=== PATIENT | female | born 1965 | race Caucasian/White ===

== ENCOUNTER 2024-10-31 03:54 | Emergency (ER) | payer OTHER ==
[2024-10-31 04:05] VITALS: TEMP 98.5
--- NOTE | 2024-10-31 04:12 | ERPHSYRPT ---
- History of Present Illness Time Seen by Provider: 10/31/24 03:56 Source: patient, family Physician History: This is a 59-year-old female [id number] who has had 3 to 4 days of right middle finger nail area pain that she is tried stabbing with a needle, scissors, and biting at an soaking in warm water with Epsom salt. She noticed after soaking that white discharge came out and this somewhat decreased pain, but the fingertip was red and she tried using antibiotic ointment and a glove to keep antibiotic ointment on the site which has not resolved it. Patient's last tetanus shot 10 years or more ago. Allergies/Adverse Reactions: No Known Drug Allergies Allergy (Unverified 10/31/24 04:05) Home Medications: Aspirin 81 gm Chew [Baby Aspirin 81 mg Chew] 1 tab PO DAILY 10/31/24 [History] Atorvastatin Calcium 10 mg PO DAILY 10/31/24 [History] Lisinopril 10 mg [Zestril 10 MG] 10 mg PO DAILY 10/31/24 [History] Metformin HCl [Metformin ER Gastric] 1,000 mg PO BID 10/31/24 [History] - Review of Systems All Other Systems: Reviewed and Negative (As per HPI otherwise negative) - Nursing Vital Signs Nursing Vital Signs: Initial Vital Signs Temperature 98.5 F 10/31/24 04:04 Pulse Rate 120 H 10/31/24 04:04 Respiratory Rate 17 10/31/24 04:04 Blood Pressure 175/98 10/31/24 04:04 O2 Sat by Pulse Oximetry 97 10/31/24 04:04 Pain Scale Pain Intensity 4 - Physical Exam Comments: 10/31/24 04:16 General: Well-nourished well-developed. No apparent distress. HEENT: Normocephalic atraumatic no obvious facial or neck deformity or injury. Neck: Supple. No deformity or mass noted. CV: RRR NL Perfusion. No edema Resp: No Respiratory distress or adventitious breath sounds Abd: ND SNT MSK: No deformity or TTP. Right finger #3 distal phalanx with paronychia on lateral aspect of fingernail that appears decompressed. No active drainage. There is no pulp space tenderness or evidence of felon. Patient states that she had noticed white discharge did come out after soaking and she has been squeezing it. Neuro: Alert and [place] x4. No gross focal neurologic changes Psych: Patient very anxious. Doing windmills rolling her arms. She has to be calmed but is directable. No SI, HI or grave disability 10/31/24 04:19 Ordered Tests: Medication Summary Discontinued Medications Generic Name Dose Route Start Last Admin Trade Name Jennifer PRN Reason Stop Dose Admin Amoxicillin/Clavulanate Potassium 875 mg 10/31/24 04:12 10/31/24 04:27 Amox Tr/Potassium Clavulanate 875 Mg Tablet PO 10/31/24 04:13 875 mg STAT ONE Administration Diphtheria/Tetanus/Acell Pertussis 0.5 ml 10/31/24 04:12 10/31/24 04:27 Tdap --Diph,Pertuss(Acell),Tet Vac/Pf 0.5 Ml Vial IM 10/31/24 04:13 0.5 ml .ONCE ONE Administration Ibuprofen 600 mg 10/31/24 04:14 10/31/24 04:27 Ibuprofen 600 Mg Tablet PO 10/31/24 04:15 600 mg STAT ONE Administration - Progress Progress Note: 10/31/24 04:17 The patient heart rate, but she is very hyperactive and personality. She is doing windmills with her arms in the waiting area and has very rapid pressured speech even when talking to her. She is redirectable but has to be settled to be able to talk to her. Patient is informed that she needs to stop manipulating, using needles, scissors, biting or doing any other manipulation of wound. The wound does appear to already be decompressed and there does not appear to be a distinct pus area to drain. There is no evidence of a felon to drain or pulp space infection otherwise. There is some erythema at the distal tip without significant warmth odor or discharge. Patient will be treated as a paronychia that is already drained but will be placed on antibiotics at first dose given in the emergency department. Patient to have her tetanus updated the emergency department as well. I have given strict wound care instructions and the importance of soaking this in warm water with Epsom salt 20 minutes every few hours. To return if any changes or worsening especially but fails to improve or does spread. The patient's condition was discussed with themselves and/or family members in great detail. Precautions are given and need to return or call 911 immediately for any changes or worsening are discussed. Instructions on patient's condition and noting that conditions can change or worsen and that diagnosis are presumptive and can evolve are discussed. All questions were answered. All concerns addressed at this time 10/31/24 04:19 10/31/24 04:35 Note on heart rate, patient states she had a 32 ounce cup of coffee and 4 Monster drinks at midnight 4 hours ago. Of note also, it appears that patient has been biting her nails and she admits to is much. She is again counseled not to be biting, poking or stabbing her nails. She states she will comply. Heart rate down to 108, but I feel this is due to excessive caffeine and energy drinks substances. Patient to recheck her vital signs of blood pressure and heart rate at home and with her doctor. Counseled to stop drinking any type of beverages. - Departure Departure Disposition: Home Clinical Impression: Paronychia of finger, Tachycardia, Caffeine intoxication Condition: Stable Critical Care Time: No Referrals: GISELA HOWELL NP [Primary Care Provider, UNKNOWN] - Follow up/PCP as directed Instructions: Paronychia, Caffeine Additional Instructions: Stop biting, poking at and manipulate your finger. Continue to use warm water with Epsom salt soaks 15 to 20 minutes every 2-3 hours. supervising broker your antibiotic prescribed and begin taking every 12 hours. Redness or warmth continues or worsens return to the emergency department. Injury or follow-up with your doctor in the next 1 to 2 days. In Addition STOP use of energy drinks and caffeine as these can greatly affect your blood pressure and heart rate. Is important you recheck your heart rate and blood pressure with your doctor. Your heart rate should be less than 100 at rest. Today it was 108 although that you were using large amounts of caffeinated beverages. Check with your doctor to follow this up closely. You have been evaluated for an emergency medical condition. At this time, given the current history and events presented, the examination conducted and any possible testing you may have had, you have been given a presumptive diagnosis based on the current information is obtained. Your discharge diagnosis is presumptive and not necessarily definitive. Medical conditions present in various stages very often without all the symptoms or findings described in medical literature. Other symptoms, concerns or conditions may arise and your diagnoses may evolve or change and/or your condition could potentially worsen after the time of disposition or discharge. You have been given a presumptive diagnosis and your condition appears to be stable, but your medical issues can change or worsen. If there is worsening of your condition including difficulty breathing, swallowing, speaking, chest pain or pressure, intractable vomiting, worsening or changing mental status, numbness, tingling or weakness of your body or arms or legs, thoughts or plans of harming yourself or others, or any other concerns, call 911 and/or return immediately to the closest emergency department. It is important you follow-up with your doctor on the next business day. Call your doctor, or the referral provided if you do not have a doctor, when they open to schedule a follow-up appointment in the next 1 or latest 2 days. Please refer to the attached sheet. If you do not have primary care doctor, you can call the [facility] referral line at [phone]. Return immediately if your symptoms worsen or if you are unable to obtain further care. My team and I thank you for choosing the [facility] emergency healthcare needs. We wish you a speedy recovery. Very respectfully, Dr. Ama Browne M.D. [place] [employer] Board-certified Emergency Physician Prescriptions: Amox Tr/Potass Clav. 875 mg [Augmentin 875-125 Tablet] 1 each PO BID 10 Days #20 tablet
[2024-10-31] MEDS ORDERED: Adacel Vial IM ONE (04:24)
[2024-10-31] MEDS ORDERED: MOTRIN 600 MG ONE (04:24)
[2024-10-31] MEDS ORDERED: Augmentin 875-125 Tablet ONE (04:24)
[2024-10-31] MEDS: Adacel Vial IM ONE (04:27)
[2024-10-31] MEDS: MOTRIN 600 MG PO ONE (04:27)
[2024-10-31] MEDS: Augmentin 875-125 Tablet PO ONE (04:27)
[2024-10-31 04:35] VITALS: RESP 18
[2024-10-31 04:43] VITALS: BP 140/92; PULSE 98; O2SAT 98
== END 2024-10-31 04:47 | disposition home or self-care (01) ==
LOC: ED 03:54
DX: L03.011 Cellulitis of right finger (principal); R00.0 Tachycardia, unspecified; F15.129 Other stimulant abuse with intoxication, unspecified; M79.644 Pain in right finger(s); Z79.84 Long term (current) use of oral hypoglycemic drugs; Z79.899 Other long term (current) drug therapy; Z23 Encounter for immunization